=== PATIENT | male | born 1995 | race Caucasian/White ===

== ENCOUNTER 2019-04-27 07:31 | Emergency (ER) | payer OTHER ==
[~2019-04-27] VITALS: Ht 175.3 cm; Wt 137.9 kg
[~2019-04-27 07:31] MED LIST: ACCUNEB SO1.25 MG/1; CARAFATE1 GM/10 ML PO; PREDNISONE50 MG PO; PREVACID30 M2 PO; ZPAK PO
[2019-04-27] MEDS ORDERED: AMOXICILLIN 50500 MG PO (08:00)
[2019-04-27 08:04] VITALS: BP 160/94
== END 2019-04-27 08:04 | disposition home or self-care (01) ==
LOC: M.ERS 07:31
DX: H66.91 Otitis media, unspecified, right ear (principal); J45.909 Unspecified asthma, uncomplicated

== ENCOUNTER 2020-12-12 17:20 | Emergency (ER) | payer OTHER ==
[~2020-12-12] VITALS: Ht 175.3 cm; Wt 127.0 kg
[~2020-12-12 17:20] MED LIST changes: +AMOXICILLIN 50500 MG PO
[2020-12-12 17:30] VITALS: BP 151/97
[2020-12-12] MEDS ORDERED: AUGMENTIN 875-1 EACH PO (19:36)
== END 2020-12-12 19:49 | disposition home or self-care (01) ==
LOC: M.ERS 17:20
DX: K11.20 Sialoadenitis, unspecified (principal); J45.909 Unspecified asthma, uncomplicated